=== PATIENT | female | born 1955 | race Caucasian/White ===

== ENCOUNTER → 2017-07-23 | Outpatient (CLI) | payer OTHER | END | disposition home or self-care (01) | LOC: CFH 13:25 | PROVIDERS: ATTEND Nurse Practitioner Family | DX: D25.1 Intramural leiomyoma of uterus (principal); N64.3 Galactorrhea not associated with childbirth; N63.31 Unspecified lump in axillary tail of the right breast | CPT/HCPCS: 76830; 77066 ==

== ENCOUNTER 2020-07-17 14:35 | Outpatient (CLI) | payer MEDICARE | END 2020-07-17 23:59 | disposition home or self-care (01) | LOC: CFH 14:35 | PROVIDERS: ATTEND Nurse Practitioner Family | DX: Z12.31 Encounter for screening mammogram for malignant neoplasm of breast (principal) | CPT/HCPCS: 77063; 77067 ==